=== PATIENT | female | born 1965 | race Asian ===

== ENCOUNTER 2021-07-30 05:30 | Emergency (ER) | payer MEDICAID ==
[~2021-07-30] VITALS: Ht 157.5 cm; Wt 61.2 kg
[2021-07-30 05:36] VITALS: BP 131/76
--- NOTE | 2021-07-30 05:40 | NUR ---
PT TAKEN TO BED 6
--- NOTE | 2021-07-30 05:49 | NUR ---
Dr. Dubose examining patient.
[2021-07-30] MEDS ORDERED: KETOROLAC 15 MG/ML VIAL IVP ONE (05:50)
[2021-07-30] MEDS ORDERED: ONDANSETRON 4 MG/2 ML VIAL IVP ONE (05:50)
--- NOTE | 2021-07-30 06:00 | NUR ---
RPEORTS SUDDEN SHARP PAIN TO RIGHT FLANK THAT RADIATES TO PUBIC REGION WITH NAUSEA AND VOMITING.
[2021-07-30 06:04] LABS: BASOPHILS # (AUTO) 0.1 K/uL (0.00-0.22); BASOPHILS % (AUTO) 0.9 % (0.0-2.0); EOSINOPHILS # (AUTO) 0.1 K/uL (0-0.4); EOSINOPHILS % (AUTO) 0.8 % (0.0-4.0); HEMATOCRIT 35.6 % (36-48); HEMOGLOBIN 12.1 g/dL (12.0-16.0); LYMPHOCYTES # (AUTO) 1.4 K/uL (2.5-16.5); LYMPHOCYTES % (AUTO) 18.7 % (20.5-51.1); MEAN CORPUSCULAR HEMOGLOBIN 32 pg (27-31); MEAN CORPUSCULAR HGB CONC 34 g/dL (33-37); MONOCYTES # (AUTO) 0.4 K/uL (0.8-1.0); MONOCYTES % (AUTO) 5.5 % (1.7-9.3); NEUTROPHILS # (AUTO) 5.5 K/uL (1.8-7.7); NEUTROPHILS % (AUTO) 74.1 % (42.2-75.2); PLATELET COUNT (AUTO) 169 K/uL (140-450); RED BLOOD CELL COUNT(AUTO) 3.82 MIL/uL (4.20-5.40); RED CELL DISTRIBUTION WIDTH 12.7 % (11.6-13.7); WHITE BLOOD COUNT (AUTO) 7.4 K/uL (4.8-10.8)
[2021-07-30 06:10] LABS: APPEARANCE,URINE CLEAR (CLEAR); BILIRUBIN,URINE NEGATIVE (NEGATIVE); BLOOD, URINE NEGATIVE (NEGATIVE); COLOR,URINE YELLOW (YELLOW); LEUKOCYTE ESTERASE ,URINE NEGATIVE (NEGATIVE); NITRITE, URINE NEGATIVE (NEGATIVE); PH,URINE 5.5 (5.0-9.0); UGLUCOSE NEGATIVE (NEGATIVE)
[2021-07-30 06:58] LABS: ANION GAP 13.7 (8-16); CARBON DIOXIDE 25.7 mmol/L (21-32); CREATININE 0.8 mg/dL (0.6-1.3); POTASSIUM 3.4 mmol/L (3.5-5.1)
[2021-07-30] MEDS ORDERED: IBUP-2213 PO (08:22)
[2021-07-30] MEDS ORDERED: ONDA-188 PO (08:22)
[2021-07-30] MEDS ORDERED: ACET-9525 PO (08:22)
[2021-07-30 08:55] VITALS: BP 137/75
--- NOTE | 2021-07-30 08:55 | NUR ---
Patient discharged with v/s stable. Written and verbal after care instructions given and explained with teachback. IV removed at this time, site SNL. Patient alert, oriented and verbalized understanding of instructions. Ambulatory with steady gait. All questions addressed prior to discharge. ID band removed. Patient advised to follow up with PMD. Rx of hydrocodone/acetaminophen/ibuprofen/zofran given. Patient educated on indication of medication including possible reaction and side effects. Opportunity to ask questions provided and answered.
--- NOTE | 2021-07-30 08:57 | NUR ---
Pt is awake, alert and able to make simple needs known, resp even and unlabored. Denies pain at this time. Skin intact. Pt remains on RA. VSS. Daughter at bedside at this time.
== END 2021-07-30 08:55 | disposition home or self-care (01) ==
LOC: MED 05:30
DX: R10.30 Lower abdominal pain, unspecified (principal); R11.10 Vomiting, unspecified; I10 Essential (primary) hypertension
CPT/HCPCS: 36415; 74176; 80048; 81003; 85025; 96374; 96375; 99284; J1885; J2405

== ENCOUNTER 2021-10-28 18:44 | Emergency (ER) | payer MEDICAID ==
[~2021-10-28] VITALS: Ht 157.5 cm; Wt 64.0 kg
[~2021-10-28 18:44] MED LIST: ACET-9525 PO; IBUP-2213 PO; ONDA-188 PO
[2021-10-28 19:19] VITALS: BP 160/94
--- NOTE | 2021-10-28 22:02 | NUR ---
TO BED 2 FROM LOBBY
--- NOTE | 2021-10-28 22:14 | NUR ---
ERMD FLAMMIA AT BEDSIDE FOR EXAMINATION
--- NOTE | 2021-10-28 22:20 | NUR ---
LABS OBTAINED AND WALKED TO LAB
--- NOTE | 2021-10-28 22:35 | NUR ---
PT TAKEN TO CT VIA [facility]
[2021-10-28 22:41] LABS: BASOPHILS # (AUTO) 0.1 K/uL (0.00-0.22); BASOPHILS % (AUTO) 2.5 % (0.0-2.0); EOSINOPHILS # (AUTO) 0.1 K/uL (0-0.4); EOSINOPHILS % (AUTO) 1.6 % (0.0-4.0); HEMATOCRIT 38.2 % (36-48); HEMOGLOBIN 12.8 g/dL (12.0-16.0); LYMPHOCYTES # (AUTO) 1.9 K/uL (2.5-16.5); LYMPHOCYTES % (AUTO) 32.4 % (20.5-51.1); MEAN CORPUSCULAR HEMOGLOBIN 31 pg (27-31); MEAN CORPUSCULAR HGB CONC 34 g/dL (33-37); MEAN CORPUSCULAR VOLUME 92.9 fL (80-94); MONOCYTES # (AUTO) 0.4 K/uL (0.8-1.0); MONOCYTES % (AUTO) 6.9 % (1.7-9.3); NEUTROPHILS # (AUTO) 3.2 K/uL (1.8-7.7); NEUTROPHILS % (AUTO) 56.6 % (42.2-75.2); PLATELET COUNT (AUTO) 164 K/uL (140-450); RED BLOOD CELL COUNT(AUTO) 4.11 MIL/uL (4.20-5.40); RED CELL DISTRIBUTION WIDTH 12.4 % (11.6-13.7); WHITE BLOOD COUNT (AUTO) 5.7 K/uL (4.8-10.8)
[2021-10-28 22:53] LABS: APPEARANCE,URINE CLEAR (CLEAR); BILIRUBIN,URINE NEGATIVE (NEGATIVE); BLOOD, URINE TRACE-L (NEGATIVE); COLOR,URINE YELLOW (YELLOW); LEUKOCYTE ESTERASE ,URINE NEGATIVE (NEGATIVE); NITRITE, URINE NEGATIVE (NEGATIVE); PH,URINE 5.5 (5.0-9.0); UGLUCOSE NEGATIVE (NEGATIVE)
[2021-10-28 22:58] LABS: RBC,URINE 0-5 /HPF (0-5); WBC,URINE 0-5 /HPF (0-5)
--- NOTE | 2021-10-28 23:02 | NUR ---
PT BACK FROM CT. RESTING COMFORTABLY IN BED. RESP EVEN AND UNLABORED.
[2021-10-28 23:06] LABS: ALBUMIN 4.6 g/dL (3.4-5.0); ANION GAP 12.6 (8-16); CARBON DIOXIDE 26.2 mmol/L (21-32); CREATININE 0.8 mg/dL (0.6-1.3); POTASSIUM 3.8 mmol/L (3.5-5.1); TOTAL BILIRUBIN 0.4 mg/dL (0.0-1.0)
--- NOTE | 2021-10-29 00:50 | NUR ---
PT RESTING COMFORTABLY IN BED. NO DISTRESS NOTED
[2021-10-29] MEDS ORDERED: FAMO-90 PO (01:35)
[2021-10-29 01:40] VITALS: BP 160/94
--- NOTE | 2021-10-29 01:40 | NUR ---
Patient discharged with v/s stable. Written and verbal after care instructions given and explained. Patient alert, oriented and verbalized understanding of instructions. Ambulatory with steady gait. All questions addressed prior to discharge. ID band removed. Patient advised to follow up with PMD. Rx of FAMOTIDINE given. Patient educated on indication of medication including possible reaction and side effects. Opportunity to ask questions provided and answered.
--- NOTE | 2021-10-29 02:22 | NUR ---
The patient's care was reviewed and supervised by Yoselin Franco RN. Chart checked.
== END 2021-10-29 01:40 | disposition home or self-care (01) ==
LOC: MED 18:44
DX: R10.32 Left lower quadrant pain (principal); R10.12 Left upper quadrant pain; I10 Essential (primary) hypertension
CPT/HCPCS: 36415; 80053; 81001; 83605; 83690; 85025; 99284

== ENCOUNTER 2022-07-30 16:41 | Emergency (ER) | payer MEDICAID ==
[~2022-07-30] VITALS: Ht 157.5 cm; Wt 64.0 kg
[~2022-07-30 16:41] MED LIST changes: +FAMO-90 PO
[2022-07-30 16:50] VITALS: BP 182/96
[2022-07-30] MEDS ORDERED: MECLIZINE 25 MG TAB PO ONE (17:00)
--- NOTE | 2022-07-30 17:17 | NUR ---
PT W/C TO ER BED 2 FROM RAD
[2022-07-30 17:47] LABS: BASOPHILS % (AUTO) 0.7 % (0.0-2.0); EOSINOPHILS # (AUTO) 0.5 K/uL (0-0.4); EOSINOPHILS % (AUTO) 7.4 % (0.0-4.0); HEMATOCRIT 37.6 % (36-48); HEMOGLOBIN 12.8 g/dL (12.0-16.0); LYMPHOCYTES # (AUTO) 1.7 K/uL (2.5-16.5); LYMPHOCYTES % (AUTO) 28.1 % (20.5-51.1); MEAN CORPUSCULAR HEMOGLOBIN 31 pg (27-31); MEAN CORPUSCULAR HGB CONC 34 g/dL (33-37); MEAN CORPUSCULAR VOLUME 91.8 fL (80-94); MONOCYTES # (AUTO) 0.4 K/uL (0.8-1.0); MONOCYTES % (AUTO) 7.1 % (1.7-9.3); NEUTROPHILS # (AUTO) 3.5 K/uL (1.8-7.7); NEUTROPHILS % (AUTO) 56.7 % (42.2-75.2); PLATELET COUNT (AUTO) 165 K/uL (140-450); RED CELL DISTRIBUTION WIDTH 12.4 % (11.6-13.7); WHITE BLOOD COUNT (AUTO) 6.2 K/uL (4.8-10.8)
[2022-07-30 17:57] LABS: PROTHROMBIN TIME 9.9 secs (10.8-13.4)
[2022-07-30 18:11] LABS: ALBUMIN 4.7 g/dL (3.4-5.0); ANION GAP 11.4 (8-16); ASPARTATE AMINOTRANSFERASE 12 U/L (15-37); CARBON DIOXIDE 31.8 mmol/L (21-32); CHLORIDE 104 mmol/L (98-107); CREATININE 0.8 mg/dL (0.6-1.3); GFR ARICAN-AMERICAN 94 mL/min (>90); GLUCOSE 98 mg/dL (74-106); POTASSIUM 5.2 mmol/L (3.5-5.1); SODIUM SERUM 142 mmol/L (136-145); TOTAL BILIRUBIN 0.4 mg/dL (0.0-1.0); UREA NITROGEN, BLOOD 21 mg/dL (7-18)
--- NOTE | 2022-07-30 18:13 | NUR ---
pt a/o times 4, nad, denies any pain, reports dizziness, sb on cm, o2 sat 98% ra, perrl, gillespie, sr up tmes 2.
[2022-07-30 18:41] LABS: APPEARANCE,URINE CLEAR (CLEAR); BILIRUBIN,URINE NEGATIVE (NEGATIVE); BLOOD, URINE NEGATIVE (NEGATIVE); COLOR,URINE YELLOW (YELLOW); LEUKOCYTE ESTERASE ,URINE NEGATIVE (NEGATIVE); NITRITE, URINE NEGATIVE (NEGATIVE); UGLUCOSE NEGATIVE (NEGATIVE)
--- NOTE | 2022-07-30 19:28 | NUR ---
Patient resting in bed, A/Ox4, chest rise and fall symmetrical, no c/o pain or s/s of distress, patient on monitor.
--- NOTE | 2022-07-30 21:45 | NUR ---
Patient resting in bed, A/Ox4, chest rise and fall symmetrical, no c/o pain or s/s of distress, patient on monitor.
[2022-07-30] MEDS ORDERED: MECL-303 PO (22:26)
[2022-07-30 22:53] VITALS: BP 126/72
== END 2022-07-30 22:53 | disposition home or self-care (01) ==
LOC: MED 16:41
DX: R42 Dizziness and giddiness (principal); E78.5 Hyperlipidemia, unspecified
CPT/HCPCS: 36415; 70450; 70496; 70498; 71045; 80053; 81003; 84484; 85025; 85610; 85730; 93005; 99285; J8597; Q9967